=== PATIENT | male | born 1940 | race Caucasian/White ===

== ENCOUNTER 2022-09-30 02:10 | Emergency (ER) | payer MEDICARE, SELFPAY ==
[2022-09-30] VITALS (8 sets, daily range): BP systolic 152–162; BP diastolic 72–75; PULSE 74–80; RESP 17–21; TEMP 36.4; O2SAT 94–98
--- NOTE | 2022-09-30 02:36 | DI.RAD.S_ITS ---
PROCEDURE: XR ACUTE ABDOMEN SERIES INDICATIONS: abdominal pain, decreased BM TECHNIQUE: One view chest and two views of the abdomen were acquired. COMPARISON: None. FINDINGS: Surgical changes and devices: None. Chest: Lungs are clear. Heart size is normal. No pleural effusions. No pneumoperitoneum. Abdomen: Bowel gas pattern is normal. No suspicious calcifications. Visualized solid organ contours appear normal. Bones: No suspicious bony lesions. IMPRESSION: No acute cardiopulmonary abnormality. Dictated by: Mason Celestin M.D. on 09/30/2022 at 10:08 Approved by: Mason Celestin M.D. on 09/30/2022 at 10:08
--- NOTE | 2022-09-30 02:57 | ED.ABDPAIN ---
HPI - Abdominal Pain General Chief Complaint: Abdominal Pain Stated Complaint: abd pain, constipation Time Seen by Provider: 09/30/22 02:15 Source: patient and EMS Mode of arrival: EMS History of Present Illness HPI narrative: 82-year-old male former smoker with history of hypertension presents by air medical transport for evaluation of a few days of decreasing ability to move his bowels and tonight inability to urinate resulting in severe lower abdominal pain. His pain is worse when he moves and improves with rest. He denies any radiation of his pain. He has been nauseated but denies any vomiting. He denies any prior episodes of bowel obstruction, urinary retention. He is had no change in diet or medications. He denies any chest pain or shortness of breath. He is not dizzy nor weak or lightheaded Related Data Previous Rx's Medication Instructions Recorded tamsulosin 0.4 mg capsule (Flomax) 0.4 mg PO DAILY #30 caps 09/30/22 Allergies Allergy/AdvReac Type Severity Reaction Status Date / Time No Known Drug Allergies Allergy Verified 09/30/22 05:01 Review of Systems Review of Systems Narrative: GENERAL: Denies chills, fatigue, malaise, fever, sweats. HEENT: Denies sinus pain, ear pain, sore throat, difficulty swallowing, dizziness. RESPIRATORY: Denies dyspnea, cough, wheezing, hemoptysis, sputum. CARDIOVASCULAR: Denies chest pain, palpitations, orthopnea, edema, GASTROINTESTINAL: See HPI : See HPI MUSCULOSKELETAL: denies weakness, joint pain, or bony pain SKIN: Denies rash, skin lesions, or other NEUROLOGIC: Denies weakness, headache, numbness, change in speech, confusion, seizures, incoordination. PSYCHIATRIC: No concerning psychosocial issues. 12 point review of systems is negative except for those stated above Exam Narrative Exam Narrative: GENERAL: [82] year old patient appears stated age. Well-developed patient, in obvious distress. Complaining of lower abdominal pain HEAD: Atraumatic. Normocephalic. EYES: Pupils equal round and reactive. Extraocular motions intact. No scleral icterus. No injection or drainage. ENT: Nose without bleeding, purulent drainage. Throat without erythema, tonsillar hypertrophy or exudate. Airway patent. NECK: Trachea midline. Non tender CARDIOVASCULAR: Regular rate and rhythm without murmurs, gallops, or rubs. RESPIRATORY: Clear to auscultation. Breath sounds equal bilaterally. No wheezes, rales, or rhonchi. GASTROINTESTINAL: Abdomen soft, tender in the suprapubic region, nondistended. Bowel sounds present but distant EXTREMITIES: No edema or joint tenderness. BACK: Nontender without deformity or crepitance. No flank tenderness. NEURO: AOx3. SKIN: No rash or erythema of visible areas Initial Vital Signs Initial Vital Signs: Vital Signs Temperature 97.6 F 09/30/22 02:05 Pulse Rate 75 09/30/22 02:05 Respiratory Rate 18 09/30/22 02:05 Blood Pressure 156/75 H 09/30/22 02:05 Pulse Oximetry 97 09/30/22 02:05 Oxygen Delivery Method 09/30/22 02:05 Course Orders Ordered: ED Orders 09/30/22 02:36 XR acute abdomen series Stat 09/30/22 03:44 BMP [Basic Metabolic Panel] Stat 09/30/22 04:15 CBC Auto Diff [Complete Blood Count AUTO DIFF] Stat 09/30/22 04:51 Urine Microscopic Stat Discontinued Medications Ondansetron HCl (Ondansetron 4 Mg/2 Ml Inj) 4 mg IV NOW ONE Stop: 09/30/22 05:16 Last Admin: 09/30/22 05:18 Dose: Not Given Documented By: JARRETT Ondansetron HCl (Ondansetron 4 Mg/2 Ml Inj) 4 mg IV NOW ONE Stop: 09/30/22 05:16 Last Admin: 09/30/22 05:19 Dose: 4 mg Documented By: JARRETT Tamsulosin HCl (Tamsulosin 0.4 Mg Capsule) 0.4 mg PO NOW ONE Stop: 09/30/22 04:51 Last Admin: 09/30/22 05:00 Dose: 0.4 mg Documented By: JARRETT Reevaluation(s) Reevaluation #1: Grossman catheter placed by nursing, near immediate, significant improvement Vital Signs Vital signs: Vital Signs - 8 hr 09/30/22 02:05 09/30/22 03:08 09/30/22 03:07 Temperature 97.6 F Pulse Rate 75 74 78 Respiratory Rate 18 18 17 Blood Pressure 156/75 H 159/74 H Pulse Oximetry 97 97 98 Oxygen Delivery Method Room Air Room Air Room Air 09/30/22 03:30 09/30/22 03:30 09/30/22 04:05 Temperature Pulse Rate 77 80 Respiratory Rate 18 21 Blood Pressure 162/74 H Pulse Oximetry 94 97 Oxygen Delivery Method Room Air 09/30/22 04:30 09/30/22 05:00 09/30/22 05:06 Temperature Pulse Rate 79 79 Respiratory Rate 21 19 Blood Pressure 152/72 H Pulse Oximetry 95 Oxygen Delivery Method 09/30/22 05:06 Temperature Pulse Rate 74 Respiratory Rate 17 Blood Pressure Pulse Oximetry 96 Oxygen Delivery Method Room Air MDM - Abdominal Pain Lab Data 09/30/22 04:15 09/30/22 03:44 Labs: Lab Results 09/30/22 09/30/22 09/30/22 Range/Units 03:44 04:15 04:30 WBC 13.8 H (4.5-11.0) X10^3/uL RBC 5.39 (4.5-5.9) X10^6/uL Hgb 15.9 (13.5-17.5) g/dL Hct 46.9 (41-53) % MCV 87.0 (80-100) fL MCH 29.4 (26-34) PG MCHC 33.8 (30-36) % RDW 13.7 (11.6-14.8) % Plt Count 143 L (150-400) X10^3/uL Neut % (Auto) 86.1 H (50-75) % Lymph % (Auto) 8.3 L (25-40) % [place]y % (Auto) 5.4 (3-14) % Eos % (Auto) 0.1 L (2-4) % Baso % (Auto) 0.1 (0-2) % Neut # (Auto) 81036 H (4371-4898) /uL Lymph # (Auto) 1100 (0918-0518) /uL [place] # (Auto) 700 (0-900) /uL Eos # (Auto) 0 (0-450) /uL Baso # (Auto) 0 (0-100) /uL Sodium 140 (137-145) mmol/L Potassium 4.1 (3.4-5.1) mmol/L Chloride 105 (98-107) mmol/L Carbon Dioxide 25 (22-32) mmol/L BUN 27 H (9-20) mg/dL Creatinine 0.89 (0.66-1.25) mg/dL Estimated GFR > 60 (>60) mL/min BUN/Creatinine Ratio 30.3 H (6-22) Glucose 186 H (80-110) mg/dL Calcium 8.7 (8.4-10.2) mg/dL Urine RBC 0-1/hpf (0-5/HPF) Urine WBC None seen (0-5/HPF) Ur Squamous Epith Cells 0-1 /hpf (0-5/HPF) Urine Bacteria Occasional (0-1) (None) Urine Mucus 1+ H (Negative) Ur Culture Indicated? Cult not indicated Point of care testing: Urine Dip Bedside Urine Glucose Negative Bedside Urine Bilirubin - Negative Bedside Urine Ketone - Negative Urine Specific [place] 1.02 Bedside Urine Occult Blood +/- Bedside Urine pH 6.0 Bedside Urine Protein - Negative Bedside Urine Urobilinogen - Negative Bedside Urine Nitrite - Negative Bedside Urine Leukocytes - Negative Esterase MDM Narrative Medical decision making narrative: [82M with difficulty moving bowels and trouble urinating] Multiple etiologies for patient's symptoms considered including, but not limited to: [urinary retention vs. bowel obstruction vs. other] Prior Charts reviewed: none available Labs reviewed and interpreted by myself: no leukocytosis, left shift, anemia, electrolytes within normal limits and no evidence of renal failure Imaging reviewed: No bowel obstruction Patient's symptoms improved over duration of stay with above-stated therapies. Findings and discharge diagnosis discussed with patient/family followed by verbalization of understanding Return precautions discussed with patient/family whom verbalize understanding of diagnosis and plan Discharge Plan Departure Patient Disposition: Home Clinical Impression: Constipation, Acute urinary retention Instructions: DI for Constipation, DI for Urinary Retention in Men Activity Restrictions/Additional Instructions: *You have been diagnosed with [constipation and acute urinary retention] *What to do: *Please continue to take your regular medications as directed. [x ] New medication prescriptions sent to your pharmacy: [ [facility]] [ ] New medication written as a paper prescription [ ] No new medications given * as we discussed, I have included contact information for the local urology group, please call them later today, let them know you were seen in the emergency department and would like you seen in follow-up. I will electronically transmit a copy of today's note. *Take over the counter medications as directed: 1. Metamucil - is a bulk forming laxative and adds fiber 2. Colace - softens your stool 3. Dulcolax suppository - stimulates your bowels *Drink plenty of water and eat foods high in fiber *Stay as active as you can as this helps move your bowels as well *Return to Emergency Department if you should have any new, worsening or concerning symptoms, such as [fever greater than 101 F, shaking chills, worsening pain, persistent vomiting or other bothersome symptoms] Prescriptions: New tamsulosin [Flomax] 0.4 mg capsule 0.4 mg PO DAILY Qty: 30 0RF Referrals: Chao Gudino MD [Physician] - Abhijit Martins ARNP [Primary Care Provider] - Stand Alone Forms: Patient Portal/API
[2022-09-30 04:02] LABS: BUN Creatinine Ratio 30.3 (6-22); Blood Urea Nitrogen 27 mg/dL (9-20); Calcium 8.7 mg/dL (8.4-10.2); Carbon Dioxide 25 mmol/L (22-32); Chloride 105 mmol/L (98-107); Estimated Glomerular Filt Rate > 60 mL/min (>60); Glucose 186 mg/dL (80-110); HEMOLYSIS 16 (0-50); Potassium 4.1 mmol/L (3.4-5.1); Sodium 140 mmol/L (137-145)
[2022-09-30 04:26] LABS: Add Manual Diff / Slide Review NO; Basophils Absolute Auto 0 /uL (0-100); Basophils Percent Auto 0.1 % (0-2); Eosinophils Absolute Auto 0 /uL (0-450); Eosinophils Percent Auto 0.1 % (2-4); Hematocrit 46.9 % (41-53); Hemoglobin 15.9 g/dL (13.5-17.5); Lymphocytes Absolute Auto 1100 /uL (1100-4500); Lymphocytes Percent Auto 8.3 % (25-40); Mean Corpuscular HGB Conc 33.8 % (30-36); Mean Corpuscular Hemoglobin 29.4 PG (26-34); Monocytes Absolute Auto 700 /uL (0-900); Monocytes Percent Auto 5.4 % (3-14); Neutrophils Absolute Auto 11900 /uL (1500-7000); Neutrophils Percent Auto 86.1 % (50-75); Platelet Count 143 X10^3/uL (150-400); Red Blood Cell Count 5.39 X10^6/uL (4.5-5.9); Red Cell Distribution Width 13.7 % (11.6-14.8); White Blood Cell Count 13.8 X10^3/uL (4.5-11.0)
[2022-09-30] MEDS: TAMSULOSIN 0.4 MG CAPSULE PO (05:00)
[2022-09-30 05:12] LABS: Bacteria Urine Occasional (0-1); Squamous Epithelial Cell Urine 0-1 /HPF (0-5/HPF); WBC Urine None Seen (0-5/HPF)
[2022-09-30 05:13] LABS: Culture Indicated Urine Cult Not Indicated; Mucus Urine 1+ (Negative); RBC Urine 0-1/HPF (0-5/HPF)
[2022-09-30] MEDS: ONDANSETRON 4 MG/2 ML INJ IV (05:19)
--- NOTE | 2022-09-30 06:01 | PC.NURSE ---
Patient arrived with a 20g PIV in right forearm placed by [facility] airlift team. This nurse discontinued the PIV at discharge 09/30/2022, 05:55am.
== END 2022-09-30 05:55 | disposition home or self-care (01) ==
PROVIDERS: Emergency Provider Emergency Medicine; PCP Nurse Practitioner
DX: R33.8 Other retention of urine (principal); K59.00 Constipation, unspecified
CPT/HCPCS: 36415; 74022; 80048; 81003; 81015; 85025; 96374; 99284; J2405